=== PATIENT | male | born 1990 | race Caucasian/White ===

== ENCOUNTER 2021-07-06 10:13 | Day surgery (SDC) | payer MEDICAID ==
[2021-07-05 10:48] LABS: BASOPHILS % (AUTO) 0.5 % (0-1); EOSINOPHILS # (AUTO) 0.2 X10'3 (0-0.9); EOSINOPHILS % (AUTO) 2.7 % (0-6); LYMPHOCYTES # (AUTO) 1.9 X10'3 (1.1-4.8); LYMPHOCYTES % (AUTO) 25.1 % (21-51); MEAN CORPUSCULAR HEMOGLOBIN 30.9 PG (27.0-31.0); MEAN CORPUSCULAR VOLUME 90.8 FL (78-98); MEAN PLATELET VOLUME 8.7 FL (7.4-10.4); MONOCYTES # (AUTO) 0.8 X10'3 (0-0.9); MONOCYTES % (AUTO) 10.1 % (2-12); NEUTROPHILS # (AUTO) 4.7 X10'3 (1.8-7.7); NEUTROPHILS % (AUTO) 61.6 % (42-75); PRE OP HEMATOCRIT 45.5 % (42.0-52.0); PRE OP HEMOGLOBIN 15.5 g/dL (14.0-17.9); PRE OP PLATELET COUNT 270 X10'3 (140-440); RED BLOOD COUNT 5.02 X10'6 (4.70-6.10); RED CELL DISTRIBUTION WIDTH 13.3 % (11.5-14.5)
[2021-07-05 11:07] LABS: ALBUMIN 3.9 G/DL (3.4-5.0); ALKALINE PHOSPHATASE 51 IU/L (46-116); BLOOD UREA NITROGEN 10 MG/DL (7-18); BUN/CREATININE RATIO 12.3 (5.4-32.0); CHLORIDE 103 MMOL/L (99-107); CREATININE 0.81 MG/DL (0.60-1.10); PRE OP ALT 73 U/L (30-65); PRE OP ANION GAP 11 (8-16); PRE OP AST 33 U/L (10-37); PRE OP BILIRUB, TOTAL 0.4 MG/DL (0.0-1.0); PRE OP GLUCOSE 112 MG/DL (70-104); PRE OP POTASSIUM 4.1 MMOL/L (3.4-5.1); PRE OP SODIUM 139 MMOL/L (135-145); TOTAL CARBON DIOXIDE 24.8 MMOL/L (24-32); TOTAL PROTEIN 7.7 G/DL (6.4-8.2); eGFR > 90 ML/MIN
[2021-07-06] VITALS (14 sets, daily range): BP systolic 107–148; BP diastolic 48–105
[~2021-07-06] VITALS: Ht 177.8 cm; Wt 151.0 kg
[~2021-07-06 10:13] MED LIST: BUPIVAcaine 0.5% inj/PF 0 ML ONE; LIDOcaine 1% 30ml preserv. free vial ONE; NO HOME MEDS; ceFAZolin inj. 3,000 MG in normal saline 100ml IV soln 100 ML IV ONE; famotidine 20mg tablet PO ONE; ringers solution, lacted 1,000 ML IV SCH
[2021-07-06] MEDS ORDERED: ondansetron/PF 4mg/2ml inj IV PRN (10:20)
[2021-07-06] MEDS ORDERED: hydrALAZINE 20mg/ml inj. IV PRN (10:20)
[2021-07-06] MEDS ORDERED: morphine 2 MG/ML inj. syringe IV PRN (10:20)
[2021-07-06] MEDS ORDERED: HYDROmorphone/PF 0.2 MG/ML SYRINGE IV PRN (10:20)
[2021-07-06] MEDS ORDERED: labetalol 20mg/4ml (5mg/ml) syringe IV PRN (10:20)
[2021-07-06] MEDS ORDERED: morphine 4 MG/ML inj SYRINge IV PRN (10:20)
[2021-07-06] MEDS ORDERED: ringers solution, lacted 1,000 ML IV SCH (10:20)
[2021-07-06] MEDS ORDERED: fentaNYL/PF 50MCG/1 ML 2ML syringe IV PRN (10:20)
[2021-07-06] MEDS ORDERED: BUPIVAcaine 0.5% inj/PF 30 ML ONE ×2 (11:27→12:05)
[2021-07-06] MEDS ORDERED: LIDOcaine 1% 30ml preserv. free vial ONE (11:27)
[2021-07-06] MEDS ORDERED: dexamethasone sod phosphate 10mg/ml inj ONE (11:37)
[2021-07-06] MEDS ORDERED: sevoflurane 250ml liquid IH ONE (11:37)
[2021-07-06] MEDS ORDERED: glycopyrrolate 0.2mg/ml inj ONE (11:37)
[2021-07-06] MEDS ORDERED: neostigmine methylsulfate 1 MG/ML 10ml vial ONE (11:37)
[2021-07-06] MEDS ORDERED: propofol 10mg/ml 20ml vial IV ONE (11:37)
[2021-07-06] MEDS ORDERED: FENTANYL CITRATE/PF 50 MCG/1 ML VIAL ONE (11:58)
[2021-07-06] MEDS ORDERED: propofol inj 20 ML IV ONE (11:59)
[2021-07-06] MEDS ORDERED: rocuronium 10mg/ml inj IV ONE ×2 (12:00)
[2021-07-06] MEDS ORDERED: ondansetron/PF 4mg/2ml inj ONE (12:04)
[2021-07-06] MEDS ORDERED: BUPIVACAINE liposomal/PF 13.3 MG/ML vial IM ONE (12:05)
[2021-07-06] MEDS ORDERED: labetalol 20mg/4ml (5mg/ml) syringe IV ONE (12:14)
--- NOTE | 2021-07-06 12:55 | NUR ---
Received from OR via [facility] , accompanied by Anesthesiologist DR FLORES and report given by Anesthesiolgist. PT PRESENTS WITH 20G LEFT HAND, ABD DRESSING NEIDA, VSS. Addendum: 07/06/21 at 1309 by Marge Winslow RN, RN Amended: Links added.
[2021-07-06] MEDS ORDERED: oxyCODONE/APAP 5-325mg tablet PO PRN (13:00)
[2021-07-06] MEDS ORDERED: oxyCODONE/APAP 10/325mg tablet PO PRN (13:00)
[2021-07-06] MEDS ORDERED: oxyCODONE/APAP 5-325mg tablet PO ONE (14:00)
--- NOTE | 2021-07-06 15:09 | NUR ---
PT READY FOR DC. IV DC'D WITH CANULA INTACT, DC INSTRUCTIONS REVIEWED WITH PT, PT VERBALIZED UNDERSTANDING WITH NO FURTHER QUESTIONS AT THIS TIME. PT WHEELED OUT IN WHEELCHAIR TO PRIVATE VEHICLE. PT'S MOTHER TOOK PT HOME. Addendum: 07/06/21 at 1623 by Marge Winslow RN, RN Amended: Links added.
== END 2021-07-06 15:09 | disposition home or self-care (01) ==
LOC: PAS 10:13
PROVIDERS: ATTEND Surgery
DX: K42.9 Umbilical hernia without obstruction or gangrene (principal); E66.9 Obesity, unspecified; Z68.41 Body mass index [BMI] 40.0-44.9, adult; Z20.822 Contact with and (suspected) exposure to COVID-19; Z98.890 Other specified postprocedural states; Z79.899 Other long term (current) drug therapy
CPT/HCPCS: 36415; 49652; 64488; 80053; 82948; 85025; 87635; 93005; C1781; C9290; C9803; J0690; J1100; J2270; J2405; J2704; J2710; J3010; J3490; J7030; J7120; S0020; S2900; Z7506; Z7508; Z7512; A4215; A4618